=== PATIENT | male | born 1955 | race Caucasian/White ===

== ENCOUNTER 2023-02-20 09:27 | Inpatient (IN) | payer MEDICARE, OTHER, SELFPAY ==
[2023-02-20 09:36] VITALS: BP 140/87; PULSE 69; RESP 18; TEMP 36.3; O2SAT 97; BMI 21.7
--- NOTE | 2023-02-20 10:19 | CRLHL7_ITS ---
For Patients: As a result of the Century Cures Act, medical imaging exams and procedure reports are released immediately into your electronic medical record. You may view this report before your referring provider. If you have questions, please contact your health care provider. INDICATION: Pain. TECHNIQUE: Three views of the right knee. FINDINGS: Soft tissue swelling anterior and inferior to the patella. Right knee arthroplasty. Patellar resurfacing. The components are adequately aligned and well seated. IMPRESSION: Soft tissue swelling anterior to the right knee. Intact right total knee arthroplasty. Dictated by Sebastian Garcia MD @ 02/20/2023 10:48:03 AM (Electronically Signed)
--- NOTE | 2023-02-20 10:26 | ED.GENADULT ---
HPI - General Adult General Chief complaint: Extremity Pain/Injury, Lower Stated complaint: R knee pain Time Seen by Provider: 02/20/23 09:31 History of Present Illness HPI narrative: Patient is a very pleasant 67 year white male was doing some work on the floor couple days ago and developed a small nyla in his right kneecap, since then it has been swelling when he stands painful reddened and extending down to his calf. He has had no bleeding or clotting problems. He has been generally quite healthy. He is on atenolol and atorvastatin. Reports he is up-to-date on his tetanus shot. He was seen [facility] couple days ago and was told ?he was fine?. Patient reports worsening when he stands. He plans on leaving on the weekend for vacation. No rigors no difficulty breathing no diabetes Related Data Home Medications Medication Instructions Recorded Confirmed atenolol 25 mg tablet 25 mg PO DAILY 02/20/23 02/20/23 atorvastatin 20 mg tablet 20 mg PO DAILY 02/20/23 02/20/23 Allergies Allergy/AdvReac Type Severity Reaction Status Date / Time No Known Drug Allergies Allergy Verified 02/20/23 09:38 Review of Systems Status of ROS: Reports: 6 or more systems reviewed and unremarkable except as noted in History and below Exam Narrative: Exam Narrative: Objective: Patient is alert or x3 very pleasant man Vital signs look largely unremarkable Right knee shows and opened reddened area where the skin is broken over the kneecap middle anterior, he has patellar bursal inflammation and warmth, some mild extension to his lateral knee and medial knee, and he has some redness extending to his leg as well to the about the lower 3rd, no calf tenderness or palpable venous cords in his calf Const: Vital Signs, click to edit/add: Vital Signs - 24 hr 02/20/23 09:36 Temperature 97.4 F L Pulse Rate [Left P ulse Oximeter] 69 Respiratory Rate 18 Blood Pressure [Le ft Upper Arm] 140/87 H Pulse Oximetry 97 Oxygen Delivery Me thod Room Air Course Vital Signs Vital signs: Initial Vital Signs Temperature 97.4 F L 02/20/23 09:36 Temperature Source Temporal Artery Scan 02/20/23 09:36 Pulse Rate 69 02/20/23 09:36 Pulse Rhythm Regular 02/20/23 09:36 Pulse Strength 3+ Normal 02/20/23 09:36 Respiratory Rate 18 02/20/23 09:36 Blood Pressure 140/87 H 02/20/23 09:36 Blood Pressure Mean 104 02/20/23 09:36 Blood Pressure Position Sitting 02/20/23 09:36 Pulse Oximetry 97 02/20/23 09:36 Oxygen Delivery Method Room Air 02/20/23 09:36 Vital Signs Temperature 97.4 F L 02/20/23 09:36 Pulse Rate 69 02/20/23 09:36 Respiratory Rate 18 02/20/23 09:36 Blood Pressure 140/87 H 02/20/23 09:36 Pulse Oximetry 97 02/20/23 09:36 Oxygen Delivery Method Room Air 02/20/23 09:36 Temperature 97.4 F L 02/20/23 09:36 Pulse Rate 69 02/20/23 09:36 Respiratory Rate 18 02/20/23 09:36 Blood Pressure 140/87 H 02/20/23 09:36 Pulse Oximetry 97 02/20/23 09:36 Oxygen Delivery Method Room Air 02/20/23 09:36 Medical Decision Making [facility] Narrative Medical decision making narrative: Patient is a 67 year white male who has got prepatellar bursitis possibly leg cellulitis, and he has got a knee replacement. I think blood cultures, IV fluid, IV Ancef, careful monitoring of his symptoms be appropriate, orthopedic consult as indicated. At this point I do not think I would drain is fluid and would see if it simply gets better with antibiotics and hot pack, if he has any concerned then a drainage of the prepatellar fluid be appropriate. I think the patient would get better more quickly specially given the info leg involvement with IV antibiotics and hospitalization. Will discuss with hospitalist. Discharge Plan Discharge Clinical Impression: Bursitis of right knee, Cellulitis of leg Patient Disposition: Admitted As Inpatient
[2023-02-20 11:00] LABS: Basophils Absolute Auto 0.02 K/uL (0.00-0.30); Basophils Percent Auto 0.3 % (0.0-3.0); Eosinophils Absolute Auto 0.16 K/uL (0.00-0.50); Eosinophils Percent Auto 2.7 % (0.0-7.0); Hematocrit 39.5 % (37.0-53.0); Hemoglobin* 13.1 gm/dL (13.5-17.5); Immature Granulocytes Abs Auto 0.01 K/uL (0.00-0.30); Immature Granulocytes Pct Auto 0.2 %; Lymphocytes Absolute Auto 1.72 K/uL (0.90-2.90); Lymphocytes Percent Auto 29.3 % (20-44); Mean Corpuscular HGB Conc 33 gm/dL (32-36); Mean Corpuscular Hemoglobin 32 pg (26-34); Mean Corpuscular Volume 95 fL (80-100); Monocytes Percent Auto 10.2 % (0.0-11.0); Neutrophils Absolute Auto 3.37 K/uL (1.7-7.0); Neutrophils Percent Auto 57.3 % (42.0-72.0); Platelet Count* 222 K/uL (140-440); Red Blood Count 4.16 m/uL (4.30-5.90); White Blood Count* 5.88 K/uL (4.50-11.00)
[2023-02-20 11:16] LABS: Slide Review Reflex No
[2023-02-20 11:17] LABS: Chloride* 103 mmol/L (96-114); Sodium* 136 mmol/L (135-149)
[2023-02-20 11:18] LABS: Potassium* 4.5 mmol/L (3.6-5.1)
[2023-02-20 11:20] LABS: Creatinine* 0.7 mg/dL (0.5-1.5); Est. Creatinine Clearance* 73.58; Estimated Glomerular Filt Rate 101 ml/min
[2023-02-20 11:21] LABS: Blood Urea Nitrogen* 16 mg/dL (7-30); Calcium* 8.6 mg/dL (8.4-10.6); Carbon Dioxide* 25 mmol/L (20-32); Glucose* 104 mg/dL (60-115)
[2023-02-20] MEDS: CEFAZOLIN 2 GM in 0.9 % SODIUM CHLORIDE Mini-bag 100 ML IVPB (11:23)
[2023-02-20 11:24] LABS: C Reactive Protein* 3.9 mg/dL (0.5-1.0)
--- NOTE | 2023-02-20 11:58 | PM.IMHP1 ---
Hospitalist- H&P: HPI History of Present Illness Date Seen: 02/20/23 Chief complaint: R knee pain Narrative: Mickey Metz is a 67 year old male who presented to the ER for R knee pain and edema. Symptoms have been present for 3+ days. 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 No significant alleviating or aggravating factors, no fevers. History of R knee replacement approximately 15 years ago and has noted one previous bout of prepatellar bursitis. Mickey was seen at an outside clinic on 02/18, had a normal CBC and was given an Rx for Omnicef, but was unable to get this filled until yesterday evening. ER Course and Findings: - blood cultures obtained, VS reassuring - given IV Ancef - WBC 5.6, CRP 3.9, Hgb 13.1 - No acute or concerning findings on XR of knee Patient's history updated below. PCP is Dr. Leroy Maldonado at [facility] in [place]; [employer] Plant Worker is Dr. Karyn Gross. Hasn't had to use Prednisone for RA flares in quite some time. Review of Systems Status of ROS: Reports: 10 or more systems reviewed and unremarkable except as noted in History and below Narrative: No recent fevers, no other arthralgias. No GI or complaints. No CP or dyspnea. [facility] Medical History (Updated 02/20/23 @ 15:30 by Joellen Camara MD) Fracture, femur ?S72.90XA - Unspecified fracture of unspecified femur, initial encounter for closed fracture (ICD-10) Hyperlipidemia ?E78.5 - Hyperlipidemia, unspecified (ICD-10) Essential (primary) hypertension ?I10 - Essential (primary) hypertension (ICD-10) Rheumatoid arthritis ?M06.9 - Rheumatoid arthritis, unspecified (ICD-10) Surgical History (Updated 02/20/23 @ 12:24 by Joellen Camara MD) H/O nasal septoplasty ?Z98.890 - Other specified postprocedural states (ICD-10) History of knee replacement procedure of left knee ?Z96.652 - Presence of left artificial knee joint (ICD-10) History of knee replacement procedure of right knee ?Z96.651 - Presence of right artificial knee joint (ICD-10) Family History (Updated 02/20/23 @ 12:27 by Joellen Camara MD) Mother Alzheimers disease Father Prostate cancer Social History (Updated 02/20/23 @ 12:30 by Joellen Camara MD) Narrative: Mickey lives with Lilia, has 3 adult children. 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 Quit smoking in 1997, drinks 3-4 beers 2-3 nights/week with no history of ETOH withdrawal. Lilia would be medical decision maker if needed, requests CPR in the event of a witnessed arrest only. Highest level of school completed/degree received: high school graduate Smoking Status: Former smoker Second hand tobacco smoke exposure: Yes (min exposure) How often do you have a drink containing alcohol: 2-3 times a week Alcohol type: beer How often do you have six or more drinks on one occasion: Weekly AUDIT-C Alcohol total score: 6 Non-prescribed substance use: denies use Caffeine: Yes (3 cups/dly) service: No Meds Home Medications and Allergies Home Medications Medication Instructions Recorded Confirmed Type abatacept (with maltose) 250 mg 30 ml IV Q28D 02/20/23 02/20/23 History intravenous solution atenolol 50 mg tablet 50 mg PO DAILY 02/20/23 02/20/23 History atorvastatin 20 mg tablet 20 mg PO DAILY 02/20/23 02/20/23 History cefdinir 300 mg capsule 300 mg PO BID 02/20/23 02/20/23 History prednisone 5 mg tablet 2.5 mg PO DAILY PRN 02/20/23 02/20/23 History Allergies Allergy/AdvReac Type Severity Reaction Status Date / Time No Known Drug Allergies Allergy Verified 02/20/23 09:38 Exam Narrative: Exam Narrative: GEN: Alert and oriented, nontoxic in appearance HEENT: EOMIs bilaterally, no scleral icterus CV: RRR, No concerning murmurs, rubs, or gallops R: LCTA bilaterally without concerning wheezing, rales, or rhonchi Ext: + joint effusion noted R knee with small skin abrasion. Able to flex and extend the knee without severe pain. + warmth, mild surrounding erythema of patella. No ankle edema Skin: No other concerning skin lesions noted on exposed skin Neuro: No focal deficits, no resting tremor Psych: Appropriate Const: Vital Signs, click to edit/add: Vital Signs - 24 hr 02/20/23 09:36 Temperature 97.4 F L Pulse Rate [Left P ulse Oximeter] 69 Respiratory Rate 18 Blood Pressure [Le ft Upper Arm] 140/87 H Pulse Oximetry 97 Oxygen Delivery Me thod Room Air Hospitalist - H&P: Result Labs Labs: Short CBC 02/20/23 Range/Units 10:30 WBC 5.88 (4.50-11.00) K/uL Hgb 13.1 L (13.5-17.5) gm/dL Hct 39.5 (37.0-53.0) % Plt Count 222 (140-440) K/uL BMP 02/20/23 10:30 Sodium 136 Potassium 4.5 Chloride 103 Carbon Dioxide 25 BUN 16 Creatinine 0.7 Glucose 104 Calcium 8.6 Assessment and Plan Assessment and plan (1) Cellulitis of leg: Problem comment: - high risk given location, previous knee replacement, immunosuppressed status - will cover with Vancomycin and Cefepime - Orthopedic surgery and PT consulted given h/o knee replacement Status: Acute (2) Bursitis of right knee: Status: Acute (3) Rheumatoid arthritis: Problem comment: - immunosuppressed on Orencia Status: Acute (4) Essential (primary) hypertension: Problem comment: - age appropriate control, continue home dose of Atenolol Status: Acute Plan - per above - Lovenox for ppx
[2023-02-20 12:23] VITALS: BP 138/76; PULSE 64; RESP 18; TEMP 37.2; O2SAT 97; BMI 21.5
[2023-02-20 15:33] VITALS: O2SAT 97
[2023-02-20 15:36] VITALS: BP 116/66; PULSE 68; RESP 16; TEMP 36.4; O2SAT 97
--- NOTE | 2023-02-20 15:42 | PC.NURSE ---
shift note: pt admit via wc from ED. pt A&Ox3. pt rt knee to mid calf with swelling and redness. redness outlined.scabbed area noted on mid knee cap. Pt up indept and denies pain. PP+ bilat. pt afeb with stable vss. LS clr. Pt states last BM today prior to admit. IV patent to Lt AC. handout given to pt regarding new antibiotics. Reviewed s/e of antibiotics. Reported off to Sheri BRANTLEY
[2023-02-20] MEDS: CEFEPIME HCL 2 GM in 0.9 % SODIUM CHLORIDE Mini-bag 100 ML IVPB (17:06)
[2023-02-20 19:00] VITALS: BP 119/71; PULSE 71; RESP 18; TEMP 36.6; O2SAT 96
[2023-02-20] MEDS: ENOXAPARIN 40 MG/0.4 ML INJ SUBCUT (20:32)
[2023-02-20] MEDS: SODIUM CHLORIDE 0.9 % (FLUSH) 10 ML SYRINGE 5 ML IVF (20:33)
--- NOTE | 2023-02-20 22:27 | PC.NURSE ---
Shift [id number]- Patient denies pain except for short-lived pain after standing. He is up ad jovani. Anterior right leg very light pink to knee and surrounding area. Outlined. Appetite intact.
[2023-02-20 23:00] VITALS: BP 116/67; PULSE 57; RESP 18; TEMP 36.6; O2SAT 94; O2SAT 96
[2023-02-21 03:00] VITALS: BP 111/70; PULSE 69; RESP 18; TEMP 36.5; O2SAT 96
[2023-02-21] MEDS: CEFEPIME HCL 2 GM in 0.9 % SODIUM CHLORIDE Mini-bag 100 ML IVPB ×2 (06:13→18:36)
[2023-02-21 06:53] LABS: Basophils Absolute Auto 0.03 K/uL (0.00-0.30); Basophils Percent Auto 0.5 % (0.0-3.0); Eosinophils Absolute Auto 0.19 K/uL (0.00-0.50); Eosinophils Percent Auto 3.3 % (0.0-7.0); Hematocrit 37.3 % (37.0-53.0); Hemoglobin* 12.4 gm/dL (13.5-17.5); Immature Granulocytes Abs Auto 0.01 K/uL (0.00-0.30); Immature Granulocytes Pct Auto 0.2 %; Lymphocytes Absolute Auto 1.94 K/uL (0.90-2.90); Mean Corpuscular HGB Conc 33 gm/dL (32-36); Mean Corpuscular Hemoglobin 32 pg (26-34); Mean Corpuscular Volume 96 fL (80-100); Monocytes Percent Auto 8.9 % (0.0-11.0); Neutrophils Absolute Auto 3.02 K/uL (1.7-7.0); Neutrophils Percent Auto 53.1 % (42.0-72.0); Platelet Count* 213 K/uL (140-440); RDW Coefficient of Variation % 13.1 % (11.5-15.5); Red Blood Count 3.89 m/uL (4.30-5.90)
[2023-02-21 07:00] VITALS: BP 149/88; PULSE 56; RESP 14; TEMP 37; O2SAT 96
[2023-02-21 07:03] LABS: Slide Review Reflex No
[2023-02-21 07:05] LABS: Albumin* 3.4 g/dL (3.3-5.0); Chloride* 104 mmol/L (96-114); Sodium* 136 mmol/L (135-149)
[2023-02-21 07:06] LABS: Potassium* 4.3 mmol/L (3.6-5.1)
[2023-02-21 07:08] LABS: Aspartate Amino Transferase* 22 U/L (12-35); Bilirubin Total* 0.4 mg/dL (0.1-1.5); Carbon Dioxide* 29 mmol/L (20-32); Creatinine* 0.7 mg/dL (0.5-1.5); Est. Creatinine Clearance* 72.81; Estimated Glomerular Filt Rate 101 ml/min; Total Protein* 6.3 g/dL (6.0-8.3)
[2023-02-21 07:09] LABS: Alanine Aminotransferase* 15 U/L (4-50); Alkaline Phosphatase* 59 U/L (40-150); Blood Urea Nitrogen* 12 mg/dL (7-30); Calcium* 8.3 mg/dL (8.4-10.6); Glucose* 108 mg/dL (60-115)
[2023-02-21 07:11] LABS: C Reactive Protein* 2.7 mg/dL (0.5-1.0)
[2023-02-21] MEDS: atenoloL 50 MG TABLET PO (09:04)
[2023-02-21] MEDS: ATORVASTATIN 10 MG TABLET 20 MG PO (09:04)
[2023-02-21 11:00] VITALS: BP 121/65; PULSE 67; RESP 18; TEMP 36.6; O2SAT 96
--- NOTE | 2023-02-21 11:09 | REH.PT ---
Patient interviewed by PT he is up ad jovani Ind in room without AD, refuses PT assessment as patient reports he is moving at baseline.
--- NOTE | 2023-02-21 13:41 | P.IMPN_ITS ---
Progress Note: A&P Assessment and plan (1) Cellulitis of leg: Problem details: - high risk given location, previous knee replacement, immunosuppressed status - will cover with Vancomycin and Cefepime - Orthopedic surgery and PT consulted given h/o knee replacement (both deny any further needs at this time) - Status: Acute (2) Bursitis of right knee: Status: Acute (3) Rheumatoid arthritis: Problem details: - immunosuppressed on Orencia (last dose 01/28) Status: Acute (4) Essential (primary) hypertension: Problem details: - age appropriate control, continue home dose of Atenolol Status: Acute Plan - continue IV antibiotics, await culture results - likely home tomorrow if continued improvement Subjective Date Seen: 02/21/23 Interval history: Mickey has no concerns for the hospitalist team. He feels that the erythema of his right lower extremity has improved, he is tolerating IV antibiotics. He was seen by Orthopedic surgery, who did not recommend any acute intervention at this time. White blood count remains normal, CRP trending downward. Patient remains afeb rile with negative cultures. Exam Narrative: Exam Narrative: GEN: Alert and oriented, nontoxic, eating breakfast in bedside chair and answering questions appropriately HEENT: EOMIs bilaterally, no scleral icterus CV: RRR, No concerning murmurs, rubs, or gallops R: LCTA bilaterally without concerning wheezing, air movement adequate Ext: Effusion over right knee without crepitus or significant tenderness to palpation; erythema around the patella from admission has significantly improved, + flexion/extension of knee Skin: No other concerning skin lesions or rashes on exposed skin Neuro: No focal deficits Psych: Appropriate Const: Vital Signs, click to edit/add: Vital Signs - 24 hr 02/20/23 15:33 02/20/23 15:36 02/20/23 15:36 Temperature 97.5 F L Pulse Rate [Right Brachial] 68 Respiratory Rate 16 Blood Pressure [Ri ght Arm] 116/66 Pulse Oximetry 97 97 97 Oxygen Delivery Me thod Room Air Room Air Room Air 02/20/23 19:00 02/20/23 23:00 02/20/23 23:00 Temperature 98 F Pulse Rate [Right Brachial] 71 57 L Respiratory Rate 18 18 18 Blood Pressure [Ri ght Arm] 119/71 Pulse Oximetry 96 94 Oxygen Delivery Me thod Room Air Room Air 02/20/23 23:00 02/21/23 03:00 02/21/23 07:00 Temperature 98 F 97.7 F Pulse Rate [Right Brachial] 57 L 69 56 L Respiratory Rate 18 18 14 Blood Pressure [Ri ght Arm] 116/67 111/70 Pulse Oximetry 96 96 Oxygen Delivery Pa thod Room Air Room Air 02/21/23 07:00 02/21/23 07:00 Temperature 98.6 F Pulse Rate [Right Brachial] 56 L Respiratory Rate 14 14 Blood Pressure [Ri ght Arm] 149/88 H Pulse Oximetry 96 96 Oxygen Delivery Pa thod Room Air Room Air Labs Labs: Laboratory Results - last 24 hr 02/21/23 06:32 WBC 5.70 RBC 3.89 L Hgb 12.4 L Hct 37.3 MCV 96 MCH 32 MCHC 33 RDW Coeff of Stacy 13.1 Plt Count 213 Neut % (Auto) 53.1 Lymph % (Auto) 34.0 [place] % (Auto) 8.9 Eos % (Auto) 3.3 Baso % (Auto) 0.5 Neut # (Auto) 3.02 Lymph # (Auto) 1.94 Randall # (Auto) 0.50 Eos # (Auto) 0.19 Baso # (Auto) 0.03 Sodium 136 Potassium 4.3 Chloride 104 Carbon Dioxide 29 BUN 12 Creatinine 0.7 Estimated Creat Clear 72.81 Estimated GFR 101 Glucose 108 Calcium 8.3 L Total Bilirubin 0.4 AST 22 ALT 15 Alkaline Phosphatase 59 C-Reactive Protein 2.7 H Total Protein 6.3 Albumin 3.4
[2023-02-21 15:00] VITALS: BP 114/74; PULSE 67; RESP 18; TEMP 36.6; O2SAT 94
[2023-02-21 19:00] VITALS: BP 132/75; PULSE 60; RESP 18; TEMP 36.8; O2SAT 96
--- NOTE | 2023-02-21 19:56 | PC.NURSE ---
Nursing Care Hours: [id number] Medication Error: 1500 Vancomycin to be mixed with 250ml NS bag and to infuse over 1 hour. Sound Editor used 100ml bag but put in the ordered dose and rate into pump. Pt received a more concentrated dose in 40min. Sound Editor noticed mistake at 1730 when setting up next ABX. Pharmacy called and instructed to look for Rafa syndrome aeb redness, rash, allergic reaction symptoms. Sound Editor checked on pt right away, no sx, no c/o of feeling different or ill. Sound Editor was transparent to pt as to what happened. Pt appreciated the update and said it was Ok and that he felt no different. Charge nurse and hospitalist informed, safety report completed. Pt up ad jovani, independent in room. No c/o pain. Redness not observed to R knee. Minimal swelling to anterior knee noted. Drinking plenty of fluids, eating 100% of all meals. VSS. IV in L AC infiltrated. Warm blanket provided, IV dc'd. New IV placed R forearm with one attempt.
[2023-02-21] MEDS: ENOXAPARIN 40 MG/0.4 ML INJ SUBCUT (20:19)
[2023-02-21] MEDS: SODIUM CHLORIDE 0.9 % (FLUSH) 10 ML SYRINGE 5 ML IVF (20:32)
[2023-02-21 23:00] VITALS: BP 113/67; PULSE 58; RESP 18; TEMP 36.8; O2SAT 96
[2023-02-22 03:00] VITALS: BP 122/76; PULSE 61; RESP 18; TEMP 36.5; O2SAT 96
[2023-02-22] MEDS: CEFEPIME HCL 2 GM in 0.9 % SODIUM CHLORIDE Mini-bag 100 ML IVPB (04:29)
[2023-02-22 07:00] VITALS: BP 132/79; PULSE 71; RESP 18; TEMP 36.6; O2SAT 96
[2023-02-22 07:28] LABS: Basophils Absolute Auto 0.02 K/uL (0.00-0.30); Basophils Percent Auto 0.3 % (0.0-3.0); Eosinophils Absolute Auto 0.15 K/uL (0.00-0.50); Eosinophils Percent Auto 2.6 % (0.0-7.0); Hematocrit 40.2 % (37.0-53.0); Hemoglobin* 13.2 gm/dL (13.5-17.5); Immature Granulocytes Abs Auto 0.01 K/uL (0.00-0.30); Immature Granulocytes Pct Auto 0.2 %; Lymphocytes Absolute Auto 2.06 K/uL (0.90-2.90); Lymphocytes Percent Auto 35.8 % (20-44); Mean Corpuscular HGB Conc 33 gm/dL (32-36); Mean Corpuscular Hemoglobin 32 pg (26-34); Mean Corpuscular Volume 97 fL (80-100); Monocytes Percent Auto 8.3 % (0.0-11.0); Neutrophils Absolute Auto 3.03 K/uL (1.7-7.0); Neutrophils Percent Auto 52.8 % (42.0-72.0); Platelet Count* 238 K/uL (140-440); RDW Coefficient of Variation % 13.1 % (11.5-15.5); Red Blood Count 4.16 m/uL (4.30-5.90); White Blood Count* 5.75 K/uL (4.50-11.00)
[2023-02-22 07:39] LABS: Slide Review Reflex No
[2023-02-22 07:46] LABS: Chloride* 106 mmol/L (96-114); Potassium* 4.3 mmol/L (3.6-5.1); Sodium* 138 mmol/L (135-149)
[2023-02-22 07:49] LABS: Creatinine* 0.8 mg/dL (0.5-1.5); Est. Creatinine Clearance* 72.81; Estimated Glomerular Filt Rate 97 ml/min
[2023-02-22 07:50] LABS: Blood Urea Nitrogen* 13 mg/dL (7-30); Calcium* 8.6 mg/dL (8.4-10.6); Carbon Dioxide* 28 mmol/L (20-32); Glucose* 108 mg/dL (60-115)
[2023-02-22 07:53] LABS: C Reactive Protein* 2.1 mg/dL (0.5-1.0)
--- NOTE | 2023-02-22 08:03 | P.DS_ITS ---
DS: Providers Provider Date Seen: 02/22/23 Date of admission: 02/20/23 12:31 Primary care physician: Not a Local Provider Admitting Clinician: Joellen Camara MD Consults: 02/20/23 12:41 Consult to Physical Therapy [CONS] Routine Comment: Reason(s) for PT Consult:: Evaluate and Treat Any Restrictions?:: Wt Bearing as Tolerated 02/20/23 15:00 Consult to Physician [CONS] Routine Comment: Consulting Provider: Med Flores Has provider been notified: Yes Attending Physician on discharge: Joellen Camara MD Date of Discharge: 02/22/23 DS: Diagnosis Discharge Diagnosis (1) Cellulitis of leg: Status: Acute Problem details: - high risk given location, previous knee replacement, immunosuppressed status - will cover with Vancomycin and Cefepime - Orthopedic surgery and PT consulted given h/o knee replacement (both deny any further needs at this time) - (2) Bursitis of right knee: Status: Acute (3) Rheumatoid arthritis: Status: Acute Problem details: - immunosuppressed on Orencia (last dose 01/28) (4) Essential (primary) hypertension: Status: Acute Problem details: - age appropriate control, continue home dose of Atenolol DS: Summary Hospital Course Hospital Course: Very pleasant 67-year-old male with history of RA and bilateral TKA eyes, presented to the hospital with right patellar cellulitis. Given patient's immunosuppressed status, Vancomycin and Cefepime were initiated for antimicrobial therapy. Orthopedic surgery consulted, felt that infection was superficial and confined to skin, no aggressive intervention recommended. Patient's white blood count remained normal throughout stay and elevated CRP trended downward. He remained afebrile and was able to ambulate without difficulty. Cultures remained negative and patient was appropriate for discharge home on oral Bactrim on 02/22/23 with PCP follow-up. Status at Discharge Functional status at discharge: independent ambulation Overall status at discharge: patient is back to baseline Time Spent with Patient Time attestation: Total time spent providing and/or coordinating discharge services: Time spent: Greater than 30 minutes Exam Narrative: Exam Narrative: GEN: Alert and oriented, nontoxic in appearance HEENT: Normal external ears, EOMIs bilaterally, no scleral icterus CV: RRR, No concerning murmurs, rubs, or gallops R: LCTA bilaterally without concerning wheezing, rales, or rhonchi Ext: Mild right knee effusion appears improved, no crepitus or ttp to palpation Skin: Erythema that was outlined over right patella has significantly improved, no other concerning skin lesions noted Neuro: Nonfocal Psych: Appropriate Const: Vital Signs, click to edit/add: Vital Signs - 24 hr 02/21/23 11:00 02/21/23 15:00 02/21/23 15:00 Temperature 97.8 F Pulse Rate [Right Brachial] 67 67 Respiratory Rate 18 18 18 Blood Pressure [Ri ght Arm] 121/65 Pulse Oximetry 96 94 Oxygen Delivery Me thod Room Air Room Air 02/21/23 15:00 02/21/23 19:00 02/21/23 23:00 Temperature 97.8 F 98.3 F Pulse Rate [Right Brachial] 67 60 58 L Respiratory Rate 18 18 18 Blood Pressure [Ri ght Arm] 114/74 132/75 Pulse Oximetry 94 96 Oxygen Delivery Me thod Room Air Room Air 02/21/23 23:00 02/21/23 23:00 02/22/23 03:00 Temperature 98.3 F 97.7 F Pulse Rate [Right Brachial] 58 L 61 Respiratory Rate 18 18 18 Blood Pressure [Ri ght Arm] 113/67 122/76 Pulse Oximetry 96 96 96 Oxygen Delivery Me thod Room Air Room Air Room Air 02/22/23 07:00 02/22/23 07:00 02/22/23 07:00 Temperature 97.9 F Pulse Rate [Right Brachial] 71 71 Respiratory Rate 18 18 18 Blood Pressure [Ri ght Arm] 132/79 Pulse Oximetry 96 96 Oxygen Delivery Me thod Room Air Room Air DS: Data Data Completed and Pending Labs on day of discharge: Labs from last 24 hours 02/22/23 06:36 WBC 5.75 RBC 4.16 L Hgb 13.2 L Hct 40.2 MCV 97 MCH 32 MCHC 33 RDW Coeff of Stacy 13.1 Plt Count 238 Neut % (Auto) 52.8 Lymph % (Auto) 35.8 [place] % (Auto) 8.3 Eos % (Auto) 2.6 Baso % (Auto) 0.3 Neut # (Auto) 3.03 Lymph # (Auto) 2.06 [place] # (Auto) 0.50 Eos # (Auto) 0.15 Baso # (Auto) 0.02 Sodium Pending Potassium Pending Chloride Pending Carbon Dioxide Pending BUN Pending Creatinine Pending Estimated GFR Pending Glucose Pending Calcium Pending C-Reactive Protein Pending Preliminary micro results at discharge 02/20/23 10:45 Wound Culture - Preliminary Knee,Right 02/20/23 11:02 Blood Culture - Preliminary Blood NO GROWTH AFTER 24 HOURS 02/20/23 10:30 Blood Culture - Preliminary Blood NO GROWTH AFTER 24 HOURS Discharge Plan Discharge Disposition: Home, Self-Care Date of Admission: 02/20/23 12:31 Attending Provider on Discharge: Joellen Camara Consulting Providers: Med Flores Primary Care Provider: Provider,Not a Local Condition: Improved Anticipated Discharge Date/Time: 02/22/23 07:48 Discharge Medications: New sulfamethoxazole-trimethoprim [Bactrim DS] 800-160 mg tablet 1 tab PO BID 7 Days Qty: 14 0RF Continued atorvastatin 20 mg tablet 20 mg PO DAILY atenolol 50 mg tablet 50 mg PO DAILY prednisone 5 mg tablet 2.5 mg PO DAILY PRN abatacept (with maltose) 250 mg recon soln 30 ml IV Q28D Rx Instructions: 750mg monthly Discontinued cefdinir 300 mg capsule 300 mg PO BID Discharge Orders: Discharge Order (Routine); Ordered 02/22/23 Ordered By: Joellen Camara Patient Education: Sulfamethoxazole/Trimethoprim (By mouth), Cellulitis (GEN) Additional Instructions: 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 JACKELINE wrap over the knee is a good idea for compression over the next few weeks. Activity Level: No strenuous activity Activity Detail: Okay to walk but no aggressive activity Discharge Diet: Regular Follow Up Appointments: Provider,Not a Local [Primary Care Provider] - (See Dr. Maldonado for an appt in 2-3 weeks to recheck your knee (patient will call and make appt)) Forms: [employer] Info Instructions
[2023-02-22] MEDS: atenoloL 50 MG TABLET PO (08:39)
[2023-02-22] MEDS: ATORVASTATIN 10 MG TABLET 20 MG PO (08:39)
--- NOTE | 2023-02-22 10:59 | PC.NURSE ---
Discharge: pt. alert and oriented, up to chair. swelling and redness subsided to right knee. pt. denies pain and says he feels great. Pt. discharged today at 947, IV removed intact. patient belongings and discharge instructions signed. Patient verbalized understanding of discharge. Patient ambulated independently to his car parked in the ED.
== END 2023-02-22 09:47 | disposition home or self-care (01) | DRG 603 ==
LOC: ED 10:29 → MEDSURG 11:25
PROVIDERS: Admitting Provider Family Medicine; Emergency Provider Family Medicine; Visit Provider Family Medicine
DX: L03.115 Cellulitis of right lower limb (principal); M70.51 Other bursitis of knee, right knee; M06.9 Rheumatoid arthritis, unspecified; I10 Essential (primary) hypertension; E78.5 Hyperlipidemia, unspecified; Z96.651 Presence of right artificial knee joint; Z96.652 Presence of left artificial knee joint
CPT/HCPCS: 36415; 73562; 80048; 80053; 85025; 86140; 87040; 87070; 99284; A9270; J0690; J0692; J1650; J3370; J7050